=== PATIENT | male | born 1965 | race Caucasian/White ===

== ENCOUNTER 2018-07-10 11:55 | Day surgery (SDC) | payer OTHER ==
[~2018-07-10] VITALS: Ht 177.8 cm; Wt 92.0 kg
[2018-07-10 12:19] VITALS: Ht 177.8 cm; Wt 92.0 kg
[2018-07-10] MEDS ORDERED: NO MEDS (12:27)
[2018-07-10 13:35] VITALS: BP 113/64; PULSE 55; RESP 18
[2018-07-10] MEDS ORDERED: FENTAnyl 50 MCG/ML VIAL ONE (14:10)
[2018-07-10] MEDS ORDERED: MIDAZOLAM 1 MG/ML 2 ML INJ ONE (14:10)
[2018-07-10 14:30] VITALS: BP 102/55; PULSE 56; RESP 14
== END 2018-07-10 17:11 | disposition home or self-care (01) ==
LOC: GIL 11:55
PROVIDERS: ATTEND Internal Medicine Gastroenterology
DX: Z12.11 Encounter for screening for malignant neoplasm of colon (principal); K64.8 Other hemorrhoids
CPT/HCPCS: 45378; J2250; J3010

== ENCOUNTER 2018-09-27 12:13 | Day surgery (SDC) | payer OTHER ==
[~2018-09-27] VITALS: Ht 177.8 cm; Wt 92.6 kg
[~2018-09-27 12:13] MED LIST: NO MEDS
[2018-09-27 12:58] VITALS: Ht 177.8 cm; Wt 92.6 kg
[2018-09-27 13:29] VITALS: BP 114/62; PULSE 52; RESP 18
[2018-09-27] MEDS ORDERED: FENTAnyl 50 MCG/ML VIAL ONE (14:59)
[2018-09-27] MEDS ORDERED: MIDAZOLAM 1 MG/ML 2 ML INJ ONE ×2 (14:59)
[2018-09-27 15:13] VITALS: BP 95/64; PULSE 46; RESP 12
== END 2018-09-27 15:45 | disposition home or self-care (01) ==
LOC: GIL 12:13
PROVIDERS: ATTEND Internal Medicine Gastroenterology
DX: Z12.11 Encounter for screening for malignant neoplasm of colon (principal); K64.8 Other hemorrhoids
CPT/HCPCS: 45378; J2250; J3010; Z7610